=== PATIENT | female | born 1970 | race Caucasian/White ===

== ENCOUNTER 2018-03-13 10:06 | Emergency (ER) | payer OTHER ==
[~2018-03-13] VITALS: Ht 175.3 cm; Wt 77.1 kg
[2018-03-13] MEDS ORDERED: ERYTHROMYCIN E3.5 G2 OPHTHALMIC (10:55)
[2018-03-13] MEDS ORDERED: CYCLOPENTOLA1 %/2 M1 OPHTHALMIC (10:55)
[2018-03-13 11:00] VITALS: BP 138/76
== END 2018-03-13 11:10 | disposition home or self-care (01) ==
LOC: M.ERS 10:06
DX: S05.02XA Injury of conjunctiva and corneal abrasion without foreign body, left eye, initial encounter (principal); Z88.1 Allergy status to other antibiotic agents; Z88.8 Allergy status to other drugs, medicaments and biological substances; W55.03XA Scratched by cat, initial encounter; Y93.89 Activity, other specified; Y92.89 Other specified places as the place of occurrence of the external cause; Y99.8 Other external cause status

== ENCOUNTER → 2019-12-28 | Outpatient (CLI) | payer OTHER ==
[~2019-12-28] MED LIST: CYCLOPENTOLA1 %/2 M1 OPHTHALMIC; ERYTHROMYCIN E3.5 G2 OPHTHALMIC
== END ==
LOC: M.ULTRA 12-21 16:00
PROVIDERS: ATTEND Registered Nurse Diabetes Educator
DX: E04.1 Nontoxic single thyroid nodule (principal); E83.52 Hypercalcemia